=== PATIENT | female | born 1990 | race Hispanic/Latino ===

== ENCOUNTER 2018-03-12 22:11 | Emergency (ER) | payer OTHER, SELFPAY ==
--- NOTE | 2018-03-12 22:48 | ER ---
Nurse's Notes [facility] Name: Jeannine Benjamin Age: 27 yrs Sex: Female : 1990 Arrival Date: 03/12/2018 Time: 22:17 Bed 20 Private MD: Diagnosis: Other specified disorders of teeth and supporting structures Presentation: 03/12 22:24 Presenting complaint: Patient states: that for the past 2 days she has been having left fc upper tooth pain. States that tooth is broken. Transition of care: patient was not received from another setting of care. Onset of symptoms was March 10, 2018. Risk Assessment: Do you want to hurt yourself or someone else? Patient reports no desire to harm self or others. Initial Sepsis Screen: Does the patient meet any 2 criteria? No. Patient's initial sepsis screen is negative. Does the patient have a suspected source of infection? No. Patient's initial sepsis screen is negative. Care prior to arrival: Medication(s) given: Tylenol, last at 1600. 22:24 Method Of Arrival: Ambulatory 22:24 Acuity: GILLES 4 Triage Assessment: 22:30 General: Reports toothache that started 2 days ago. EENT: Reports pain. 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 - Social history:: Smoking status: Patient uses tobacco products, smokes one-half pack cigarettes per day. - Ebola Screening: : Patient negative for fever greater than or equal to 101.5 degrees Fahrenheit, and additional compatible Ebola Virus Disease symptoms Patient denies exposure to infectious person Patient denies travel to an Ebola-affected area in the 21 days before illness onset. Screenin:05 Abuse screen: Denies threats or abuse. Denies injuries from another. Nutritional rv screening: No deficits noted. Tuberculosis screening: No symptoms or risk factors identified. Fall Risk None identified. Assessment: 22:30 General: Appears uncomfortable, obese, Behavior is calm, cooperative. Pain: Complains rv of pain in left cheek, mouth and left jaw. Neuro: Level of Consciousness is awake, alert, obeys commands, Oriented to person, place, time. Cardiovascular: Capillary refill < 3 seconds. 22:30 Respiratory: Airway is patent. GI: No signs and/or symptoms were reported involving the rv gastrointestinal system. : No signs and/or symptoms were reported regarding the genitourinary system. EENT: No signs and/or symptoms were reported regarding the EENT system. Derm: Skin is intact. Musculoskeletal: No signs and/or symptoms reported regarding the musculoskeletal system. Vital Signs: 22:26 BP 133 / 86; Pulse 74; Resp 18; Temp 98.7(O); Pulse Ox 100% on R/A; Weight 94.35 kg fc (R); Height 5 ft. 0 in. (152.40 cm) (R); Pain 9/10; 22:26 Body Mass Index 40.62 (94.35 kg, 152.40 cm) ED Course: 22:17 Patient arrived in ED. es 22:25 Triage completed. 22:26 Arm band placed on Patient placed in an exam room, on a stretcher. 22:30 Patient has correct armband on for positive identification. Bed in low position. Call rv light in reach. Side rails up X 1. 22:32 Todd Gamboa PA [facility] 22:32 Adolfo Guthrie MD is Attending Physician. [facility] 23:06 No provider procedures requiring assistance completed. Patient did not have IV access rv during this emergency room visit. Administered Medications: No medications were administered Outcome: 22:47 Discharge ordered by . [facility] 23:06 Discharged to home ambulatory. 23:06 Condition: unchanged 23:06 Discharge instructions given to patient, Instructed on discharge instructions. 23:07 Patient left the ED. rv Signatures: Todd Gamboa PA PA Sylvia Hsu Felicia, RN RN Ibrahima Adamson RN RN rv
--- NOTE | 2018-03-12 22:48 | EDPHYS ---
Physician Documentation [facility] Name: Jeannine Benjamin Age: 27 yrs Sex: Female : 1990 Arrival Date: 03/12/2018 Time: 22:17 Bed 20 Private MD: ED Physician Adolfo Guthrie HPI: 03/12 22:45 This 27 yrs old Female presents to ER via Ambulatory with complaints of jmm Toothache. 22:45 The patient presents with pain. Onset: The symptoms/episode began/occurred gradually. jmm 22:45 Patient complains of left upper dental pain beginning 2 days ago. Denies fever. Denies jmm injury. 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 - Social history:: Smoking status: Patient uses tobacco products, smokes one-half pack cigarettes per day. - Ebola Screening: : Patient negative for fever greater than or equal to 101.5 degrees Fahrenheit, and additional compatible Ebola Virus Disease symptoms Patient denies exposure to infectious person Patient denies travel to an Ebola-affected area in the 21 days before illness onset. ROS: 22:45 Constitutional: Negative for fever, chills, and weight loss, Cardiovascular: Negative jm for chest pain, palpitations, and edema, Respiratory: Negative for shortness of breath, cough, wheezing, and pleuritic chest pain. 22:45 ENT: Positive for dental pain. 22:45 All other systems are negative. Exam: 22:45 Head/Face: atraumatic. jmm 22:45 Constitutional: The patient appears alert, awake, uncomfortable. 22:45 ENT: Dental exam: dental caries, that is moderate, specifically in the upper left lateral incisor (#10), upper left cuspid (#11), upper left first bicuspid (#12) and upper left second bicuspid (#13). 22:45 ENT: no periapical swelling, purulent drainage. 22:45 Cardiovascular: Rate: normal. 22:45 Respiratory: the patient does not display signs of respiratory distress, Respirations: normal. 22:45 Skin: Appearance: Color: normal in color. 22:45 Neuro: Orientation: is normal, Mentation: is normal, Memory: is normal. Vital Signs: 22:26 BP 133 / 86; Pulse 74; Resp 18; Temp 98.7(O); Pulse Ox 100% on R/A; Weight 94.35 kg (R); Height 5 ft. 0 in. (152.40 cm) (R); Pain 9/10; 22:26 Body Mass Index 40.62 (94.35 kg, 152.40 cm) MDM: 22:45 Patient medically screened. [facility] 22:45 Differential diagnosis: dental caries, gingivitis. Data reviewed: vital signs, nurses [facility] notes. Administered Medications: No medications were administered Disposition: 03/13 06:36 Co-signature as Attending Physician, Adolfo Guthrie MD I agree with the assessment and [facility] plan of care. Disposition: 03/12/18 22:47 Discharged to Home. Impression: Other specified disorders of teeth and supporting structures. - Condition is Stable. - Discharge Instructions: Dental Pain. - Prescriptions for penicillin V potassium 500 mg Oral tablet - take 1 tablet by ORAL route 4 times per day for 10 days; 40 tablet. Ultram 50 mg Oral Tablet - take 1 tablet by ORAL route every 6 hours As needed; 12 tablet. - Medication Reconciliation Form, Thank You Letter, Antibiotic Education, Prescription Opioid Use form. - Follow up: Private Physician; When: 1 - 2 days; Reason: Recheck today's complaints. - Notes: Please follow up with dentist for further evaluation of your pain. Please return to the ED if you develop increased pain, fever, or swelling. Signatures: Adolfo Guthrie MD MD cha Mickail, Joel, PA PA jmm Chretien, Felicia, RN RN Ibrahima Adamson RN RN rv Corrections: (The following items were deleted from the chart) 03/12 23:07 22:47 03/12/2018 22:47 Discharged to Home. Impression: Other specified disorders of rv teeth and supporting structures. Condition is Stable. Forms are Medication Reconciliation Form, Thank You Letter, Antibiotic Education, Prescription Opioid Use. Follow up: Private Physician; When: 1 - 2 days; Reason: Recheck today's complaints. [facility] 03/13 03:03 03:02 Patient complains of left upper dental pain worsening over the past 24 hours. zofia Denies fever. . zofia
== END 2018-03-12 23:07 | disposition home or self-care (01) ==
LOC: ER 22:11
DX: K08.89 Other specified disorders of teeth and supporting structures (principal); F17.210 Nicotine dependence, cigarettes, uncomplicated
CPT/HCPCS: 99281